=== PATIENT | male | born 1955 | race Caucasian/White ===

== ENCOUNTER 2016-08-04 18:02 | Inpatient (IN) | payer MEDICAID ==
[~2016-08-04] VITALS: Ht 188 cm; Wt 79.6 kg
[2016-08-04] MEDS ORDERED: GLUCOTROL 5 MG T5 MG PO (18:12)
[2016-08-04] MEDS ORDERED: METFORMIN HCL500 M1 PO (18:12)
[2016-08-04 18:20] VITALS: BP 123/72
--- NOTE | 2016-08-04 18:35 | NUR ---
PT TO ROOM AMBULATORY. ADMISSION COMPLETE. ATTEMPTED TO SITE PT PIV X2 STICKS NO SUCCESS. PT MOVING AND JERKING ARM AND CO OF PAIN WHEN INSERTED. WILL HAVE COMING ON NURSE SITE PT. DR LUNA AT BEDSIDE TALKING WITH PT
[2016-08-04 18:56] LABS: BASOPHILS 0.6 % (0.0-2.0); EOSINOPHILS 2.9 % (0-7); HEMATOCRIT 37.2 % (42.0-54.0); HEMOGLOBIN 13.1 g/dL (13.5-17.5); IMMATURE GRANULOCYTES 0.2 % (0-5); LYMPHOCYTES 29.6 % (15-50); MCH 32.2 pg (26.0-34.0); MCHC 35.2 g/dL (31.0-37.0); MCV 91.4 fL (80.0-100.0); MEAN PLATELET VOLUME 11.4 fL (7.4-10.4); NEUTROPHILS 59.7 % (40-80); PLATELET COUNT 269 10x3/uL (130-400); RBC 4.07 10x6/uL (4.20-6.10); WBC 5.4 10x3/uL (4.8-10.8)
[2016-08-04 19:12] LABS: ALBUMIN 3.6 g/dL (3.4-5.0); ALKALINE PHOSPHATASE 424 U/L (46-116); ALT (SGPT) 271 U/L (10-68); AMYLASE - SERUM 33 U/L (25-115); BILIRUBIN - TOTAL 10.07 mg/dL (0.2-1.3); CALC OSMOLALITY 285 mosm/kg (275-300); CALCIUM 9.1 mg/dL (8.5-10.1); CARBON DIOXIDE 23.3 mmol/L (21.0-32.0); CHLORIDE - SERUM 100 mmol/L (98-107); CREATININE - SERUM 0.7 mg/dL (0.6-1.3); GLUCOSE 341 mg/dL (74-106); LIPASE 144 U/L (73-393); PROTEIN - SERUM 7.3 g/dL (6.4-8.2); SODIUM 135 mmol/L (136-145); UREA NITROGEN 20 mg/dL (7-18); eGFR NON AFRICAN AMERICAN > 90 mL/min (90-120)
--- NOTE | 2016-08-04 19:30 | NUR ---
SITTING IN BEDSIDE CHAIR AWAITING TO GO TO CT SCAN.ALERT AND ORIENTED X3, RESP EVEN AND UNLAB UP AD CARISA W/O DIFF. SKIN IS YELLOW, WHITES IN EYES ARE YELLOW. ON CLEAR LIQUID DIET PER MD ORDERS. VOICES NO C/O PAIN OR DISCOMFORT AT THIS TIME. CONTINUE TO MONITOR.
[2016-08-04 20:00] VITALS: BP 121/77
[2016-08-05] VITALS: BP 120/78
--- NOTE | 2016-08-05 00:51 | NUR ---
IN PJS FROM HOME, IV TO RT AC INTACT AND PATENT WITH NS INFUSING W/O DIFF VIA PUMP AT 75CC/HR. SANA WELL. HOB UP SR UP X2, C/L IN REACH. CONTINUE TO MONITOR.
[2016-08-05 04:00] VITALS: BP 115/73
[2016-08-05 04:43] LABS: BASOPHILS 0.8 % (0.0-2.0); HEMATOCRIT 36.4 % (42.0-54.0); HEMOGLOBIN 12.6 g/dL (13.5-17.5); IMMATURE GRANULOCYTES 0.2 % (0-5); LYMPHOCYTES 33.8 % (15-50); MCH 31.7 pg (26.0-34.0); MCHC 34.6 g/dL (31.0-37.0); MCV 91.5 fL (80.0-100.0); MEAN PLATELET VOLUME 11.5 fL (7.4-10.4); MONOCYTES 11.3 % (2-11); NEUTROPHILS 49.9 % (40-80); PLATELET COUNT 270 10x3/uL (130-400); RBC 3.98 10x6/uL (4.20-6.10); RDW 13.9 % (11.5-14.5); WBC 4.7 10x3/uL (4.8-10.8)
[2016-08-05 05:16] LABS: ALBUMIN 3.2 g/dL (3.4-5.0); ALKALINE PHOSPHATASE 383 U/L (46-116); ALT (SGPT) 255 U/L (10-68); BILIRUBIN - TOTAL 8.87 mg/dL (0.2-1.3); CALC OSMOLALITY 285 mosm/kg (275-300); CALCIUM 8.5 mg/dL (8.5-10.1); CARBON DIOXIDE 23.7 mmol/L (21.0-32.0); CHLORIDE - SERUM 104 mmol/L (98-107); CREATININE - SERUM 0.7 mg/dL (0.6-1.3); POTASSIUM - SERUM 3.5 mmol/L (3.5-5.1); PROTEIN - SERUM 6.6 g/dL (6.4-8.2); SODIUM 138 mmol/L (136-145); UREA NITROGEN 17 mg/dL (7-18); eGFR NON AFRICAN AMERICAN > 90 mL/min (90-120)
[2016-08-05 05:20] LABS: GLUCOSE 251 mg/dL (74-106)
--- NOTE | 2016-08-05 07:25 | NUR ---
PT IS SITTING UP IN BED ARROUSED EASILY. DENIES NEEDS WILL CONT TO MONITOR
--- NOTE | 2016-08-05 08:38 | NUR ---
PAGED DR LUNA TO MAKE SURE HE IS AWARE OF CT SCAN RESULTS.
--- NOTE | 2016-08-05 08:39 | NUR ---
DR LUNA CALLED BACK AND SAID HIM AND DR GARRETT WOULD TALK WITH PT TO SEE ABOUT THEIR NEXT MOVE. MAYBE AROUND 929 TO TALK WITH HIM. SAID TO HOLD ON ANY ORDERS FOR NOW. HE IS AWARE OF CT SCAN RESULTS
--- NOTE | 2016-08-05 08:50 | NUR ---
PT REFUSES SCDS BECAUSE HE IS UP AD CARISA OFTEN
[2016-08-05 08:58] VITALS: BP 117/73
--- NOTE | 2016-08-05 11:02 | NUR ---
Patient Name: JOSÉ MIGUEL DUMONT Admission Status: Elective Accout number: [id number] Admission Date: 08-04-2016 : 1955 Admission Diagnosis: Attending: ABELINO Current LOS: 1 Anticipated DC Date: 08-05-2016 Planned Disposition: Acute Care Hospital Primary Insurance: [place] PRIVATE OPTIONS COLTEN PLANNED EXTERNAL PROVIDER: [facility] Discharge Planning Comments: * Is the patient Alert and Oriented? Yes 0 * How many steps to enter\exit or inside your home? NONE 0 * PCP DR. GARRETT 0 * Pharmacy [facility] 0 * Preadmission Environment Home with Family 0 * ADLs Independent 0 * Equipment None 0 * Other Equipment NO MEDICAL EQUIPMENT PROVIDER PREFERENCE 0 * List name and contact numbers for known caregivers / representatives who currently or will assist patient after discharge: RAHEL PATEL, SPOUSE, 0 * Community resources currently utilized None 0 * Please name any agencies selected above. NONE 0 * Additional services required to return to the preadmission environment? No 0 * Can the patient safely return to the preadmission environment? Yes 0 * Has this patient been hospitalized within the prior 30 days at any hospital? No [address] LUNA WHO ADVISED THAT PT IS IN NEED OF TRANSFER TO [facility] FOR MEDICAL / SURGERY BED, PT WILL HAVE A STENT THIS MORNING AND CAN TRANSFER. DR. LUNA PROVIDED HIS CELL PHONE NUMBER FOR ANY NEEDED DOCTOR CONTACT. CM NOTIFEID RN ELIAS JARA. CM MET WITH PT IN ROOM TO DISCUSS DISCHARGE PLANNING AND NEEDS. PT REPORTS LIVING AT HOME INDEPENDENTLY WITH SPOUSE. PT HAS NO MEDICAL EQUIPMENT AND NO OUTSIDE SERVICES ASSISTING IN THE HOME. CM DISCUSSED AVAILABILITY OF HOME HEALTH, REHAB SERVICES AND MEDICAL EQUIPMENT. PT IS IN AGREEMENT WITH TRANSFER TO [facility] RECOMMENDED BY DR. LUNA, PT CALLED AND NOTIFIED HIS VIA PHONE. CM TO FOLLOW AND ASSIST NEEDED. Latex Ribbon Machine Operator: Reymundo Blevins
[2016-08-05 11:08] VITALS: Ht 188 cm; Wt 79.6 kg
--- NOTE | 2016-08-05 11:35 | NUR ---
ELIAS WAS INFORMED THAT DR LUNA HAS REQUESTED TRANSFER TO [facility] FOR SURGICAL ONCOLOGY SERVICES. CM SPOKE WITH PATIENT AND HE WAS AWARE AND IS AGREEABLE TO TRANFER TO [facility] IF BED IS AVAILABLE. ELIAS PLACED CALL TO FANNY Reagan, LUNCH TRUCK OPERATOR, TO OBTAIN ADMIN APPROVAL. FANNY SPOKE TO DARREN ESPAÑA, ADMIN. RACECOURSE BARRIER ATTENDANT, WHO GAVE ADMINISTRATIVE APPROVAL FOR ACUTE TRANSFER. ELIAS PLACED CALL TO [facility] TRANSFER TEAM AND SPOKE TO SUSSY. ELIAS PROVIDED REQUESTED INFORMATION TO [facility] AND SUSSY STATED SHE WOULD NOTIFY CM IF PATIENT IS ACCEPTED FOR TRANSFER. ELIAS WAS CONTACTED BACK BY SUSSY AT [facility] TO INFORM THAT PATIENT HAS BEEN ACCEPTED FOR ACUTE TRANSFER TO [facility] AND ACCEPTING PHYSICIAN IS DR. CORDOVA WHO IS SURGICAL ONCOLOGIST AT [facility]. SUSSY INFORMED THAT CURRENTLY THERE ARE NO BEDS AVAILABLE FOR TRANSFER, BUT THAT TRANSFER TEAM WILL CONTACT BEDSIDE NURSE WHEN A BED BECOMES AVAILABLE. DR GARRETT AND PATIENT WERE BOTH INFORMED OF ABOVE. CM WILL FOLLOW AND ASSIST NEEDED.
[2016-08-05 11:55] LABS: APPEARANCE CLEAR (CLEAR); BILIRUBIN NEGATIVE (NEGATIVE); COLOR YELLOW (YELLOW); GLUCOSE 1000 mg/dL (NEGATIVE); KETONE NEGATIVE (NEGATIVE); LEUKOCYTE ESTERASE NEGATIVE (NEGATIVE); NITRITE NEGATIVE (NEGATIVE); PROTEIN NEGATIVE (NEGATIVE); SPECIFIC GRAVITY 1.015 (1.005-1.020); UROBILINOGEN NORMAL (NORMAL)
--- NOTE | 2016-08-05 12:25 | NUR ---
HAD DIFFICULTY WITH THE FIRST RX 44 MALFUNCTIONED THE ALUMINUM PIECE WAS BENT. USED 10 X 10 STENT THEN EANTED A 7 X 7 STENT SMALLER AND WAS PLACED. HAD TO REMOVE FIRST ONE WITH SNARE. CONTRAST 17CC AND XRAY TIME 1.2.
--- NOTE | 2016-08-05 12:32 | NUR ---
PT BACK FROM SURGERY. VS STABLE AND WNL PT ALERT AND ORIENTED DENIES NEEDS OTHER THAN LUNCH TRAY. CHECKED PT FSBS PT REFUSED INSULIN COVERAGE, SAYS THE 200S ARE HIS NORMAL FOR HIM. WILL RECHECK BEFORE DINNER. ORDERED PT LUNCH TRAY
--- NOTE | 2016-08-05 12:33 | NUR ---
[address] LUNA AND ASKED ABOUT ANTIBIOTICS AND HE SAID NO NO CUTTING NO ANTIBIOTICS NECCESSARY.
--- NOTE | 2016-08-05 12:34 | NUR ---
ANTIBIOTICS ORDERED IN THE MIDDLE OF PROCEDURE AND ANCEF GIVEN.
--- NOTE | 2016-08-05 16:47 | NUR ---
PT BS IS 335. CALLED DR DAWN OFFICE FOR INSULIN ORDER. HIS NURSE CIRSTI SAID SHE WOULD LET HIM KNOW SO HE COULD PUT IN ORDERS
[2016-08-05 17:21] VITALS: BP 110/73
--- NOTE | 2016-08-05 19:30 | NUR ---
REC'D PATIENT LYING IN BED. NO DISTRESS NOTED. DENIED PAIN AT THIS TIME. DENIED FUTHER NEEDS AT THIS TIME. INTRUCTED TO CALL IF NEEDED ANYTHING. VERBALIZED UNDERSTANDING. ASSESSED. BED LOW, LOCKED, CALL LIGHT IN REACH.
[2016-08-05 20:00] VITALS: BP 121/67
--- NOTE | 2016-08-05 21:50 | NUR ---
ADMINISTERED MEDS PRESCRIBED. PATIENT ALSO ASKED FOR SOME ICE CREAM. TOOK HIM SOME. DENIED FURTHER NEEDS. INTRUCTED TO CALL IF NEEDED ANYTHING. BED LOW, LOCKED, CALL LIGHT IN REACH.
--- NOTE | 2016-08-05 23:09 | NUR ---
PT RESTING QUIETLY WITHOUT C/O OR DISTRESS NOTED. FEW NEEDS VOICED. CALL LIGHT WITHIN REACH. WILL CONT TO MONITOR.
[2016-08-06] VITALS: BP 120/63
--- NOTE | 2016-08-06 02:16 | NUR ---
PATIENT IS RESTING IN BED. DENIES NEEDS AT THIS TIME, INSRTUCTED TO CALL IF NEEDED ANYTHING, VERBALIZED UNDERSTANDING. BED LOW, LOCKED, CALL LIGHT IN REACH.
[2016-08-06 04:00] VITALS: BP 120/76
--- NOTE | 2016-08-06 05:19 | NUR ---
PATIENT IS RESTING IN BED. DENIES NEEDS AT THIS TIME. DENIES PAIN AT THIS TIME. INSTRUCTED TO CALL IF NEEDED ANYTHING. VERBALIZED UNDERSTANDING. BED LOW, LOCKED, CALL LIGHT IN REACH.
--- NOTE | 2016-08-06 06:45 | NUR ---
RECEIVED PT REPORT. NO CO PAIN AT THIS TIME. WILL CONTINUE PLAN OF CARE. NO OTHER NEEDS.
--- NOTE | 2016-08-06 07:51 | NUR ---
PT IS ALERT. ASSESSMENT DONE PER FLOWSHEET. NO OTHER NEEDS AT THIS TIME. WILL CONTINUE TO MONTIOR.
[2016-08-06 08:00] VITALS: BP 123/76
[2016-08-06 12:00] VITALS: BP 124/75
[2016-08-06 15:59] VITALS: BP 110/68
[2016-08-06 20:27] VITALS: BP 122/75
--- NOTE | 2016-08-06 22:04 | NUR ---
INITIAL EOUNDS COMPETED AT 1914 H RS. PT DENIED ANY DISCOMFORT. ASSESSMENT COMPLETED AT 1954 HRS. VSS. IV TO RAC SL. LUNGS ESSENTIALLY CTA. UP AD CARISA. PT REQUESTING NEW IV SITE. PT SPECIFICALLY ASKING IT TO BE LOWER ON HIS INNER R FA. REFUSES IV TO L ARM, R HAND OR OUTER RFA. ATTEMPTED X1 WITHOUT SUCCESS. PT THEN STATES WILL LEAV IN AC BUT DECLINES IV FLUIDS AT THAT TIME. PM FSBS 333. 12 UNITS HUMALOG GIVEN SUB-Q TO UPPER L ARM. PM SNACK SERVED. PT CURRENTLY WATCHING TV IN RECLINER. WILL CONTINUE TO MONITOR. SR UP X2, CALL LIGHT WITHIN REACH.
--- NOTE | 2016-08-07 00:01 | NUR ---
PT AWAWK; DENIES ANY DISCOMFORT. WILL CONTINUE TO MONITOR.
[2016-08-07 00:04] VITALS: BP 118/79
--- NOTE | 2016-08-07 01:50 | NUR ---
PT AWAKE; DENIES ANY DISCOMFORT. NS AT 75CC/HR TO RAC. IV PATENT. WILL CONTINUE TO MONITOR. SR UP X2, CALL LIGHT WITHIN REACH.
[2016-08-07 04:39] VITALS: BP 122/75
--- NOTE | 2016-08-07 04:40 | NUR ---
PT RESTING WITH EYES CLOSED. RESP EVEN AND REGULAR. SR UP X2, CALL LIGHT WITHINREACH.
--- NOTE | 2016-08-07 06:46 | NUR ---
VSS THROUGHOUT NIHGT. PT DENIED ANY DISCOMFORT. AM FSBS 272. 10 UITS HUMALOG GIVEN SUB-Q TO UPPER R ARM. NEEDS MET; WILL CONTINUE TO MONITOR.
[2016-08-07 07:47] LABS: BASOPHILS 0.7 % (0.0-2.0); EOSINOPHILS 4.1 % (0-7); HEMATOCRIT 35.6 % (42.0-54.0); HEMOGLOBIN 12.1 g/dL (13.5-17.5); IMMATURE GRANULOCYTES 0.2 % (0-5); LYMPHOCYTES 42.2 % (15-50); MCH 31.4 pg (26.0-34.0); MCV 92.5 fL (80.0-100.0); MEAN PLATELET VOLUME 12.1 fL (7.4-10.4); MONOCYTES 9.1 % (2-11); NEUTROPHILS 43.7 % (40-80); PLATELET COUNT 286 10x3/uL (130-400); RBC 3.85 10x6/uL (4.20-6.10); RDW 14.4 % (11.5-14.5); WBC 4.4 10x3/uL (4.8-10.8)
[2016-08-07 08:00] VITALS: BP 128/78
[2016-08-07 08:18] LABS: ALKALINE PHOSPHATASE 298 U/L (46-116); ALT (SGPT) 195 U/L (10-68); AMYLASE - SERUM 49 U/L (25-115); BILIRUBIN - TOTAL 2.15 mg/dL (0.2-1.3); CALC OSMOLALITY 289 mosm/kg (275-300); CALCIUM 8.2 mg/dL (8.5-10.1); CARBON DIOXIDE 23.7 mmol/L (21.0-32.0); CHLORIDE - SERUM 106 mmol/L (98-107); CREATININE - SERUM 0.7 mg/dL (0.6-1.3); GLUCOSE 278 mg/dL (74-106); POTASSIUM - SERUM 3.4 mmol/L (3.5-5.1); PROTEIN - SERUM 6.4 g/dL (6.4-8.2); SODIUM 140 mmol/L (136-145); UREA NITROGEN 15 mg/dL (7-18); eGFR NON AFRICAN AMERICAN > 90 mL/min (90-120)
[2016-08-07 11:25] VITALS: BP 115/75
--- NOTE | 2016-08-07 12:45 | NUR ---
ELIAS CALLED [facility] TO CHECK STATUS OF TRANSFER. NO BEDS AVAILABLE AT THIS TIME. ELIAS WILL FOLLOW UP WITH [facility] AND DR PACHECO TOMORROW REGARDING STATUS OF TRANSFER.
[2016-08-07 15:50] VITALS: BP 117/73
--- NOTE | 2016-08-07 20:20 | NUR ---
INITIAL ROUNDS COMPELTED AT 1920 HRS. PT DENIED ANY DISCOMFORT. ASSESSMENT COMPLETED AT 2005 HRS. VSS. IV TO RAC SL. PT DECLINES IV FLUIDS. LUNGS CTA. HEART TONES S1 S2. MCCOY. PALPABLE PEDAL PULSES. PT SITTING UP IN RECLINER. WILL CONTINUE TO MONITOR. SR UP X2, CALL LIGHT WITHIN REACH.
[2016-08-07 20:48] VITALS: BP 115/75
--- NOTE | 2016-08-07 22:10 | NUR ---
PM FSBS 301. 12 UNITS HUMALOG GIVEN SUB-Q TO UPPER R ARM. PM SNACK SERVED. PT DECLINED IV FLUIDS. WILL CONTINUE TO MONITOR. SR UP X2,CALL LIGHT WITHIN REACH.
--- NOTE | 2016-08-08 00:09 | NUR ---
PT AWAKE; DENIES ANY DISCOMFORT. WILL CONTINUE TO MONITOR.
[2016-08-08 00:30] VITALS: BP 126/70
--- NOTE | 2016-08-08 03:16 | NUR ---
PT RESTING WITH EYES CLOSED. RESP EVEN AND REGULAR. SR UP X2, CALL LIGHT WITHIN REACH.
[2016-08-08 04:30] VITALS: BP 124/78
--- NOTE | 2016-08-08 04:49 | NUR ---
PT RESTING WITH EYES CLOSED. RESP EVEN AND REGULAR. SR UP X2, CALL LIGHT WITHIN REACH.
--- NOTE | 2016-08-08 06:45 | NUR ---
VSS THROUGHOUT NIGHT. PT DENIED ANY DISCOMFORT. AM FSB 298. 10 UNITS HUMALOG GIVEN SUB-Q TO UPPER R ARM. NEEDS MET; WILL CONTINUE TO MONITOR.
[2016-08-08 08:00] VITALS: BP 120/75
[2016-08-08 12:00] VITALS: BP 111/67
--- NOTE | 2016-08-08 14:20 | NUR ---
Nutrition follow-up: Diet: ADA consistent CHO PO intake 100% of most meals Labs: FSBS most > 300 mg/dl Wt: 175# +BM Pt has sliding scale insulin Pt would benefit from the addition of a long-acting insulin due to very high glucose. RDN following.
--- NOTE | 2016-08-08 16:01 | NUR ---
ALERT AND ORIENTED X4. AMBULATING IN DIMAS. DENIES PAIN OR SOB. REQUESTING UPDATE ON TRANSFER. CALL DR. PACHECO'S OFFICE FOR UPDATE. CONTINUE PLAN OF CARE AND SAFETY PRECAUTIONS.
--- NOTE | 2016-08-08 16:46 | NUR ---
CM PLACED CALL TO [facility] TRANSFER TEAM TO ASSESS AND FACILITATE TRANSFER. CM SPOKE TO CHASTITY WITH [facility] TRANSFER TEAM TO GIVE UPDATE. CM PROVIDED DR LUNA'S CONTACT INFORMATION AND MED 2 UNIT'S CONTACT INFORMATION AGAIN FOR ANY NEEDED CONTACTS THAT MAY NEED TO BE MADE TO FACILITATE TRANSFER. CM WILL FOLLOW AND ASSIST NEEDED.
--- NOTE | 2016-08-08 18:47 | NUR ---
ALERT AND ORIENTED X4. AMBULATING IN DIMAS. GAIT STEADY. [facility] CALLED TO ACCEPT TRANSFER. ONE PERSON AHEAD OF PATIENT ON LIST. DENIES SOB OR PAIN. CONTINUE PLAN OF CARE AND SAFETY PRECAUTIONS.
--- NOTE | 2016-08-08 19:30 | NUR ---
AMBULATING OUT IN HALLWAY, VOICES NO C/O PAIN OR DISCOMFORT AT THIS TIME. JAUNDICE COLOR NOTED TO SKIN. WAITING FOR A [facility] BED. CONTINUE TO MONITOR.
[2016-08-08 22:46] VITALS: BP 128/82
--- NOTE | 2016-08-09 02:15 | NUR ---
IN BED, EYES CLOSED, RESP UNLAB WITH NO S/S OF ACUTE DISTRESS NOTED AT THIS TIME. C/L IN REACH. CONTINUE TO MONITOR.
[2016-08-09 02:33] VITALS: BP 135/77
[2016-08-09 06:37] VITALS: BP 125/79
[2016-08-09 08:02] VITALS: BP 122/78
--- NOTE | 2016-08-09 11:14 | NUR ---
ALERT AND ORIENTED X4. OUT OF ROOM AMBULATING IN DIMAS. GAIT STEADY. CONSENT FOR TRANSFER SIGNED ON CHART. WAITING FOR [facility] BED PLACEMENT. DENIES SOB OR PAIN. CONTINUE PLAN OF CARE AND SAFETY PRECAUTIONS.
--- NOTE | 2016-08-09 11:22 | NUR ---
CM PLACED CALL TO [facility] MD REFERRAL LINE PER DR LUNA'S REQUEST TO ARRANGE TELEPHONE CONTACT BETWEEN DR LUNA AND DR CORDOVA AT [facility] TO DISCUSS CASE AND TRANSFER FOR PATIENT SINCE HE HAS BEEN ACCEPTED FOR TRANSFER BUT NO BEDS ARE CURRENTLY AVAILABLE AT [facility] FOR TRANSFER. CM SPOKE TO CHRISTIANO AT [facility] WHO STATED SHE WOULD HAVE DR CORDOVA CALL DR LUNA TO DISCUSS PATIENT AND THEN SHE WOULD EITHER CONTACT BONDERIZER OR BEDSIDE RN WITH STATUS UPDATE. CM WILL CONTINUE TO FOLLOW AND ASSIST. THOR MONTEJO RN
[2016-08-09 15:54] VITALS: BP 111/70
--- NOTE | 2016-08-09 16:09 | NUR ---
ELIAS RECEIVED CALL FROM DR LUNA TO INFORM THAT HE HAS SPOKEN WITH DR CORDOVA, SURGICAL ONCOLOGIST AT [facility] VIA PHONE TODAY AND THEY HAVE AGREED THAT PATIENT CAN DISCHARGE AND DR CORDOVA HAS SCHEDULED PATIENT TO BE SEEN IN HIS CLINIC AT [facility] ON Monday08/15/16. ELIAS PLACED CALL TO DR CORDOVA'S OFFICE AND SPOKE TO DANNA WHO INFORMED THAT MR DUMONT HAS AN APPOITMENT WITH DR CORDOVA AT [facility] ON Monday08/15/16 AT 2:30 PM. SHE STATED THAT PATIENT SHOULD ARRIVE AT 2:15 AND HE HAS NOT SPECIAL INSTRUCTIONS PRIOR TO HIS APPOINTMENT. CM INFORMED PATIENT OF ABOVE APPOINTMENT AND ALSO PROVIDED PATIENT WITH ADDRESS AND TELEPHONE NUMBER ALONG WITH APPT DATE/TIME FOR DR CORDOVA'S CLINIC. PT VERBALIZED UNDERSTANDING. ELIAS PLACED CALL TO DR GARRETT TO INFORM OF ABOVE.
--- NOTE | 2016-08-09 18:09 | NUR ---
ALERT AND ORIENTED X4. SITTING UP IN CHAIR. DC RT AC IV TIP INTACT. DISCHARGE INSTRUCTIONS GIVEN VERBALLY AND WRITTEN. DISCHARGE PAPERS SIGNED ON CHART. WAITING FOR RIDE. DENIES ANY NEEDS. CONTINUE PLAN OF CARE AND SAFETY PRECAUTIONS.
--- NOTE | 2016-08-09 18:40 | NUR ---
RIDE ARRIVE. REQUESTING TO WALK DOWNSTAIRS TO CAR. REMAINS FREE FROM INJURY.
== END 2016-08-09 18:41 | disposition home or self-care (01) | DRG 439 ==
LOC: D.M2 18:02
PROVIDERS: Internal Medicine Gastroenterology; ADMIT Family Medicine
PROC: 0F798DZ Dilation of Common Bile Duct with Intraluminal Device, Via Natural or Artificial Opening Endoscopic (ICD-10-PCS; principal; 2016-08-05 10:00)
DX: K86.9 Disease of pancreas, unspecified (principal); R17 Unspecified jaundice

== ENCOUNTER → 2016-09-15 21:09 | Outpatient (CLI) | payer SELFPAY ==
[2016-08-05 11:08] VITALS: BMI 24.2
[~2016-09-15 21:09] MED LIST: GLUCOTROL 5 MG T5 MG PO; METFORMIN HCL500 M1 PO
[2016-09-15 21:33] LABS: CALC OSMOLALITY 282 mosm/kg (275-300); CALCIUM 7.9 mg/dL (8.5-10.1); CARBON DIOXIDE 26.7 mmol/L (21.0-32.0); CHLORIDE - SERUM 106 mmol/L (98-107); CREATININE - SERUM 0.6 mg/dL (0.6-1.3); GLUCOSE 103 mg/dL (74-106); MAGNESIUM - SERUM 1.9 mg/dL (1.8-2.4); PHOSPHOROUS 3.5 mg/dL (2.5-4.9); POTASSIUM - SERUM 4.4 mmol/L (3.5-5.1); SODIUM 140 mmol/L (136-145); UREA NITROGEN 24 mg/dL (7-18); eGFR NON AFRICAN AMERICAN > 90 mL/min (90-120)
== END | disposition home or self-care (01) ==
LOC: D.LABREF 21:09
PROVIDERS: Family Medicine
DX: K86.89 Other specified diseases of pancreas (principal)

== ENCOUNTER → 2016-09-15 21:21 | Outpatient (CLI) | payer MEDICAID ==
[2016-08-05 11:08] VITALS: BMI 24.2
== END | disposition home or self-care (01) ==
LOC: D.LABREF 21:21
DX: K85.90 Acute pancreatitis without necrosis or infection, unspecified (principal)

== ENCOUNTER → 2016-09-19 13:42 | Outpatient (CLI) | payer MEDICAID ==
[2016-08-05 11:08] VITALS: BMI 24.2
[2016-09-19 15:15] LABS: ALBUMIN 2.8 g/dL (3.4-5.0); ALKALINE PHOSPHATASE 375 U/L (46-116); ALT (SGPT) 45 U/L (10-68); BILIRUBIN - DIRECT 0.13 mg/dL (0.00-0.30); BILIRUBIN - TOTAL 0.32 mg/dL (0.2-1.3); CALC OSMOLALITY 279 mosm/kg (275-300); CALCIUM 8.6 mg/dL (8.5-10.1); CHLORIDE - SERUM 105 mmol/L (98-107); CREATININE - SERUM 0.6 mg/dL (0.6-1.3); MAGNESIUM - SERUM 2.1 mg/dL (1.8-2.4); PHOSPHOROUS 3.8 mg/dL (2.5-4.9); POTASSIUM - SERUM 3.8 mmol/L (3.5-5.1); PRE-ALBUMIN 18.5 mg/dL (18.0-35.7); PROTEIN - SERUM 7.3 g/dL (6.4-8.2); SODIUM 140 mmol/L (136-145); TRIGLYCERIDE 56 mg/dL (30-200); UREA NITROGEN 21 mg/dL (7-18); eGFR NON AFRICAN AMERICAN > 90 mL/min (90-120)
[2016-09-19 15:26] LABS: GLUCOSE 62 mg/dL (74-106)
== END | disposition home or self-care (01) ==
LOC: D.LABREF 13:42
PROVIDERS: Family Medicine
DX: K86.89 Other specified diseases of pancreas (principal)

== ENCOUNTER 2016-10-22 13:17 | Emergency (ER) | payer MEDICAID ==
[2016-08-05 11:08] VITALS: BMI 24.2
[2016-10-22 14:14] LABS: APPEARANCE HAZY (CLEAR); BILIRUBIN NEGATIVE (NEGATIVE); COLOR YELLOW (YELLOW); GLUCOSE NEGATIVE (NEGATIVE); KETONE NEGATIVE (NEGATIVE); LEUKOCYTE ESTERASE TRACE (NEGATIVE); NITRITE NEGATIVE (NEGATIVE); PROTEIN NEGATIVE (NEGATIVE); UROBILINOGEN NORMAL (NORMAL)
[2016-10-22 14:15] LABS: BACTERIA FEW /hpf (NONE SEEN); EPITHELIAL CELLS 0-5 /hpf (0-5); RED CELLS - URINE 0-5 /hpf (0-5); WHITE CELLS - URINE 0-5 /hpf (0-5)
[2016-10-22 14:16] LABS: MUCUS >1+ /lpf (NONE SEEN)
[2016-10-22 14:29] LABS: ALBUMIN 3.2 g/dL (3.4-5.0); ALKALINE PHOSPHATASE 142 U/L (46-116); ALT (SGPT) 56 U/L (10-68); BILIRUBIN - TOTAL 0.48 mg/dL (0.2-1.3); CALC OSMOLALITY 283 mosm/kg (275-300); CALCIUM 8.5 mg/dL (8.5-10.1); CARBON DIOXIDE 29.4 mmol/L (21.0-32.0); CHLORIDE - SERUM 107 mmol/L (98-107); CREATININE - SERUM 0.8 mg/dL (0.6-1.3); POTASSIUM - SERUM 3.4 mmol/L (3.5-5.1); PROTEIN - SERUM 6.8 g/dL (6.4-8.2); SODIUM 142 mmol/L (136-145); UREA NITROGEN 11 mg/dL (7-18); eGFR NON AFRICAN AMERICAN > 90 mL/min (90-120)
[2016-10-22 14:30] LABS: GLUCOSE 132 mg/dL (74-106)
[2016-10-22 14:43] LABS: BASOPHILS 0.5 % (0-2); EOSINOPHILS 14.2 % (0-7); HEMOGLOBIN 11.6 g/dL (13.5-17.5); MCHC 33.1 g/dL (31.0-37.0); MCV 93.6 fL (80.0-100.0); MEAN PLATELET VOLUME 11.8 fL (7.4-10.4); MONOCYTES 12.6 % (2-11); NEUTROPHILS 36.7 % (40-80); PLATELET COUNT 259 10x3/uL (130-400); RBC 3.74 10x6/uL (4.20-6.10); RDW 13.7 % (11.5-14.5); WBC 4.4 10x3/uL (4.8-10.8)
== END 2016-10-22 17:30 | disposition home or self-care (01) ==
LOC: D.ER 13:17
PROVIDERS: Family Medicine; Nurse Practitioner Family
DX: R60.0 Localized edema (principal); N39.0 Urinary tract infection, site not specified; I44.0 Atrioventricular block, first degree

== ENCOUNTER 2018-08-21 14:59 | Inpatient (IN) | payer MEDICAID ==
[~2018-08-21] VITALS: Ht 188 cm; Wt 84.8 kg
[2018-08-21] MEDS ORDERED: NOVOLOG100 UNIT/1 SC ×2 (15:07→15:09)
[2018-08-21] MEDS ORDERED: LANTUS INSULIN10 ML SC (15:08)
[2018-08-21 15:36] LABS: BASOPHILS 0.3 % (0-2); EOSINOPHILS 0.8 % (0-7); HEMATOCRIT 34.4 % (42.0-54.0); IMMATURE GRANULOCYTES 0.3 % (0-5); LYMPHOCYTES 14.5 % (15-50); MCH 30.6 pg (26.0-34.0); MCHC 34.9 g/dL (31.0-37.0); MCV 87.8 fL (80.0-100.0); MEAN PLATELET VOLUME 10.8 fL (7.4-10.4); NEUTROPHILS 75.1 % (40-80); RBC 3.92 10x6/uL (4.20-6.10); RDW 13.3 % (11.5-14.5); WBC 7.3 10x3/uL (4.8-10.8)
--- NOTE | 2018-08-21 15:57 | NUR ---
URINE SENT TO THE LAB AT THIS TIME.
[2018-08-21 16:13] LABS: COLOR YELLOW (YELLOW)
[2018-08-21 16:14] LABS: APPEARANCE CLEAR (CLEAR); BILIRUBIN NEGATIVE (NEGATIVE); GLUCOSE 1000 mg/dL (NEGATIVE); KETONE SMALL mg/dL (NEGATIVE); NITRITE NEGATIVE (NEGATIVE); PROTEIN NEGATIVE (NEGATIVE); UROBILINOGEN NORMAL (NORMAL)
[2018-08-21 16:17] LABS: ANION GAP 12.9 mmol/L (8-16); BILIRUBIN - TOTAL 0.95 mg/dL (0.2-1.3); CALCIUM 9.5 mg/dL (8.5-10.1); CARBON DIOXIDE 28.6 mmol/L (21.0-32.0); CREATININE - SERUM 1.1 mg/dL (0.6-1.3); POTASSIUM - SERUM 4.5 mmol/L (3.5-5.1); PROTEIN - SERUM 7.9 g/dL (6.4-8.2)
[2018-08-21 16:21] LABS: PLATELET COUNT 168 10x3/uL (130-400)
[2018-08-21] MEDS ORDERED: DIGESTIVE ENZYMES PO (16:57)
--- NOTE | 2018-08-21 17:39 | NUR ---
PT LEAVING ED VIA STRETCHER AT THIS TIME FOR ORDERED CT SCAN. NO SIGNS OF DISTRESS NOTED WHEN LEAVING.
--- NOTE | 2018-08-21 18:06 | NUR ---
BLANKETS PROVIDED REQUESTED AND LIGHTS DIMMED FOR COMFORT. FAMILY MEMBER AT THE BEDSIDE. CALL LIGHT IN REACH. WILL CONTINUE TO MONITOR.
--- NOTE | 2018-08-21 19:09 | NUR ---
HAND-OFF REPORT GIVEN TO LOKESH DUMAS
--- NOTE | 2018-08-21 23:08 | NUR ---
PROTONIX STOP TIME 4442. PATIENT TRANSFERRED TO ROOM VIA W/C IN STABLE CONDITION.
[2018-08-22] VITALS (7 sets, daily range): BP systolic 108–140; BP diastolic 56–75; Ht 188 cm; Wt 84.8 kg
--- NOTE | 2018-08-22 00:20 | NUR ---
FSBS 187 2 UNITS OF INSULIN GIVEN PER SS.
--- NOTE | 2018-08-22 03:02 | NUR ---
I have reviewed this patient and I concur with the Shift Assessment completed by the Licensed Practical Nurse today this shift.
[2018-08-22 06:02] LABS: BASOPHILS 0.4 % (0-2); HEMATOCRIT 33.2 % (42.0-54.0); HEMOGLOBIN 11.1 g/dL (13.5-17.5); IMMATURE GRANULOCYTES 0.2 % (0-5); LYMPHOCYTES 31.6 % (15-50); MCHC 33.4 g/dL (31.0-37.0); MCV 89.7 fL (80.0-100.0); MEAN PLATELET VOLUME 11.4 fL (7.4-10.4); MONOCYTES 15.2 % (2-11); NEUTROPHILS 48.6 % (40-80); PLATELET COUNT 170 10x3/uL (130-400); RDW 13.3 % (11.5-14.5)
[2018-08-22 06:13] LABS: ALBUMIN 3.3 g/dL (3.4-5.0); ANION GAP 9.7 mmol/L (8-16); BILIRUBIN - TOTAL 0.59 mg/dL (0.2-1.3); CALCIUM 8.5 mg/dL (8.5-10.1); CREATININE - SERUM 1.1 mg/dL (0.6-1.3); MAGNESIUM - SERUM 2.1 mg/dL (1.8-2.4); POTASSIUM - SERUM 4.7 mmol/L (3.5-5.1); PROTEIN - SERUM 6.9 g/dL (6.4-8.2)
[2018-08-22 06:38] LABS: WBC 4.5 10x3/uL (4.8-10.8)
--- NOTE | 2018-08-22 14:15 | NUR ---
PT RESTING IN BED. NO SIGNS OF DISTRESS. IV TO LEFT AC PATENT NO REDNESS OR TENDERNESS. DENIES ANY FUTHER NEED AT THIS TIME. CALL LIGHT IN REACH. BED LOW POSITION. FAMILY AT BEDSIDE.
--- NOTE | 2018-08-22 14:35 | NUR ---
NPO FOR PROCEDURE TODAY. PT IS WITHOUT DISTRESS.
[2018-08-23 00:45] VITALS: BP 119/65
--- NOTE | 2018-08-23 02:03 | NUR ---
MEDICATED WITH DEMEROL PER ORDERS FOR C/O ABD PAIN RATING 5/10 ON PAIN SCALE.
--- NOTE | 2018-08-23 03:41 | NUR ---
I have reviewed this patient and I concur with the Shift Assessment completed by the Licensed Practical Nurse today this shift.
[2018-08-23 05:12] VITALS: BP 110/72
[2018-08-23 05:31] LABS: BASOPHILS 0.4 % (0-2); EOSINOPHILS 6.5 % (0-7); HEMATOCRIT 32.3 % (42.0-54.0); HEMOGLOBIN 11.1 g/dL (13.5-17.5); IMMATURE GRANULOCYTES 0.2 % (0-5); LYMPHOCYTES 32.1 % (15-50); MCH 30.6 pg (26.0-34.0); MCHC 34.4 g/dL (31.0-37.0); MEAN PLATELET VOLUME 11.2 fL (7.4-10.4); MONOCYTES 12.5 % (2-11); NEUTROPHILS 48.3 % (40-80); PLATELET COUNT 166 10x3/uL (130-400); RBC 3.63 10x6/uL (4.20-6.10); RDW 13.3 % (11.5-14.5); WBC 4.9 10x3/uL (4.8-10.8)
[2018-08-23 05:58] LABS: ALBUMIN 3.3 g/dL (3.4-5.0); ALKALINE PHOSPHATASE 163 U/L (46-116); ALT (SGPT) 47 U/L (10-68); BILIRUBIN - TOTAL 0.39 mg/dL (0.2-1.3); CALC OSMOLALITY 286 mosm/kg (275-300); CALCIUM 8.2 mg/dL (8.5-10.1); CHLORIDE - SERUM 104 mmol/L (98-107); GLUCOSE 227 mg/dL (74-106); MAGNESIUM - SERUM 2.2 mg/dL (1.8-2.4); POTASSIUM - SERUM 4.5 mmol/L (3.5-5.1); PROTEIN - SERUM 7.2 g/dL (6.4-8.2); SODIUM 140 mmol/L (136-145); UREA NITROGEN 16 mg/dL (7-18); eGFR NON AFRICAN AMERICAN 81 mL/min (90-120)
[2018-08-23 08:35] VITALS: BP 122/58
--- NOTE | 2018-08-23 09:30 | NUR ---
PATIENT REQUESTING AND RECEIVED PRODUCTS TO TAKE A SHOWER. TAPED UP HIS IV SO WE WOULD NOT LOSE ACCESS. COOKIE
[2018-08-23 12:11] VITALS: BP 104/57
--- NOTE | 2018-08-23 15:03 | NUR ---
FAMILY MEMBER IN ROOM. GALLON OF RUM BESIDE AIR CONDITIONER. PATIENT REQUESTING SOMETHING FOR PAIN TO GO HOME WITH. NOTIFIED DR MARTINES AND HE GAVE ME A SCRIPT FOR 10 TYLENOL 3'S PO PRN Q 6H.
--- NOTE | 2018-08-23 15:06 | MORECARE ---
CASE MANAGEMENT DISCHARGE SUMMARY PATIENT: JOSÉ MIGUEL DUMONT UNIT: [id number] ADM DATE: 08/21/18 AGE: 62 : 57 SEX: M ROOM/BED: D.2232 AUTHOR: CANDELARIO MONTILLA PHYSICIAN: REFERRING PHYSICIAN: CHELY MARTINES MD DATE OF SERVICE: 08/23/18 Discharge Plan Patient Name: JOSÉ MIGUEL DUMONT [facility] [facility] 1955 Planned Disposition: Home Anticipated Discharge Date: 08/24/18 Discharge Date: Expected LOS: 3 Initial Reviewer: [email or web address] Initial Review Date: 08/21/2018 Generated: 08/23/18 4:06 pm DCPIA - Discharge Planning Initial Assessment Updated by [email or web address]: Isabel Desai on 08/23/18 3:05 pm * Is the patient Alert and Oriented? Yes * How many steps to enter\exit or inside your home? 0/0 * PCP Dr. Jacques * Pharmacy [facility] in [place] * Preadmission Environment Home with Family * ADLs Independent * Equipment None * List name and contact numbers for known caregivers / representatives who currently or will assist patient after discharge: Nikki Dumont - [phone] * Verbal permission to speak to the caregivers and representatives has been obtained from the patient. Yes * Community resources currently utilized None * Additional services required to return to the preadmission environment? No * Can the patient safely return to the preadmission environment? Yes * Has this patient been hospitalized within the prior 30 days at any hospital? No Patient Name: JOSÉ MIGUEL DUMONT Page [id number] at 1506 All edits/amendments must be made on the electronic document DICTATION DATE: 08/23/18 1505 JOURNEYMAN MEAT CUTTER: MICK 08/23/18 1505 RPT#: [id number] DC DATE: STATUS: ADM IN [facility] [address] [place] [address] END OF REPORT
--- NOTE | 2018-08-23 15:16 | MORECARE ---
CASE MANAGEMENT DISCHARGE SUMMARY PATIENT: JOSÉ MIGUEL DUMONT UNIT: [id number] ADM DATE: 08/21/18 AGE: 62 : 57 SEX: M ROOM/BED: D.2232 AUTHOR: ELADIA,DOC PHYSICIAN: REFERRING PHYSICIAN: CHELY MARTINES MD DATE OF SERVICE: 08/23/18 Discharge Plan Patient Name: JOSÉ MIGUEL DUMONT Facility: [facility]:[place] : 1955 Planned Disposition: Home Anticipated Discharge Date: 08/24/18 Discharge Date: Expected LOS: 3 Initial Reviewer: [email or web address] Initial Review Date: 08/21/2018 Generated: 08/23/18 4:16 pm Comments DCP- Discharge Planning Updated by [email or web address]: Isabel Desai on 08/23/18 2:[address] Patient Name: JOSÉ MIGUEL DUMONT Admission Status: ER Accout number: [id number] Admission Date: 08-21-2018 : 1955 Admission Diagnosis: Attending: CHELY MARTINES Current LOS: 2 Anticipated DC Date: 08-24-2018 Planned Disposition: Home Primary Insurance: [place] PRIVATE OPTIONS COLT[place] Discharge Planning Comments: CM met with patient to complete initial dc planning assessment. CM educated patient on the CM role and verbal consent given by patient to complete assessment. Patient lives at home with his . At discharge patient plans to return and feels this is a safe discharge. CM discussed availability of home health, rehab services, and medical equipment. Patient denied known discharge needs at this time. He will need his disc from radiology and I informed reverse unit operator and ambulatory care coordinator of this. CM will continue to follow and will assist as needed with dc plans/needs. Track Manager: Isabel Desai DCPIA - Discharge Planning Initial Assessment Updated by [email or web address]: Isabel Desai on 08/23/18 3:05 pm * Is the patient Alert and Oriented? Yes * How many steps to enter\exit or inside your home? 0/0 * PCP Dr. Jacques * Pharmacy [facility] in [place] * Preadmission Environment Home with Family * ADLs Independent * Equipment None * List name and contact numbers for known caregivers / representatives who currently or will assist patient after discharge: Nikki Dumont - [phone] * Verbal permission to speak to the caregivers and representatives has been obtained from the patient. Yes * Community resources currently utilized None * Additional services required to return to the preadmission environment? No * Can the patient safely return to the preadmission environment? Yes * Has this patient been hospitalized within the prior 30 days at any hospital? No Last DP export: 08/23/18 2:06 pm Patient Name: JOSÉ MIGUEL DUMONT Page [id number] at 1516 All edits/amendments must be made on the electronic document DICTATION DATE: 08/23/181515 CARBON CUTTER: MICK 08/23/181515 RPT#: [id number] DC DATE: STATUS: ADM IN [facility] [address] [place] [address] END OF REPORT
[2018-08-23 16:08] VITALS: BP 136/87
[2018-08-23] MEDS ORDERED: TYLENOL W/CODEI1 TAB PO (16:10)
--- NOTE | 2018-08-23 16:58 | NUR ---
IV THERAPY DC'ED. TIP INTACT. DISCHARGE INSTRUCTIONS GIVEN PATIENT VERBALIZED UNDERSTANDING. REFUSED WHEELCHAIR OUT
--- NOTE | 2018-08-24 09:41 | MORECARE ---
CASE MANAGEMENT DISCHARGE SUMMARY PATIENT: JOSÉ MIGUEL DUMONT UNIT: [id number] ADM DATE: 08/21/18 AGE: 62 : 57 SEX: M ROOM/BED: D.2232 AUTHOR: ELADIA,DOC PHYSICIAN: REFERRING PHYSICIAN: CHELY MARTINES MD DATE OF SERVICE: 08/24/18 Discharge Plan Patient Name: JOSÉ MIGUEL DUMONT Facility: [facility]:[place] : 1955 Planned Disposition: Home Anticipated Discharge Date: 08/24/18 Discharge Date: 08/23/2018 Expected LOS: 3 Initial Reviewer: [email or web address] Initial Review Date: 08/21/2018 Generated: 08/24/18 10:41 am Comments DCP- Discharge Planning Updated by [email or web address]: Isabel Desai on 08/23/18 2:[address] Patient Name: JOSÉ MIGUEL DUMONT Admission Status: ER Accout number: [id number] Admission Date: 08-21-2018 : 1955 Admission Diagnosis: Attending: CHELY MARTINES Current LOS: 2 Anticipated DC Date: 08-24-2018 Planned Disposition: Home Primary Insurance: [place] PRIVATE OPTIONS COLT[place] Discharge Planning Comments: CM met with patient to complete initial dc planning assessment. CM educated patient on the CM role and verbal consent given by patient to complete assessment. Patient lives at home with his . At discharge patient plans to return and feels this is a safe discharge. CM discussed availability of home health, rehab services, and medical equipment. Patient denied known discharge needs at this time. He will need his disc from radiology and I informed machine made shoe unit worker and qualitative field coordinator of this. CM will continue to follow and will assist as needed with dc plans/needs. Jute Bag Sewer: Isabel Desai DCPIA - Discharge Planning Initial Assessment Updated by [id number]: Isabel Desai on 08/23/18 3:05 pm * Is the patient Alert and Oriented? Yes * How many steps to enter\exit or inside your home? 0/0 * PCP Dr. Jacques * Pharmacy [facility] in [place] * Preadmission Environment Home with Family * ADLs Independent * Equipment None * List name and contact numbers for known caregivers / representatives who currently or will assist patient after discharge: Nikki Dumont - [phone] * Verbal permission to speak to the caregivers and representatives has been obtained from the patient. Yes * Community resources currently utilized None * Additional services required to return to the preadmission environment? No * Can the patient safely return to the preadmission environment? Yes * Has this patient been hospitalized within the prior 30 days at any hospital? No Last DP export: 08/23/18 2:16 pm Patient Name: JOSÉ MIGUEL DUMONT Page [id number] at 0941 All edits/amendments must be made on the electronic document DICTATION DATE: 08/24/18939 TRANSITION TEACHER: MICK 08/24/18939 RPT#: [id number] DC DATE:08/23/18 STATUS: DIS IN [facility] [address] [place] [address] END OF REPORT
== END 2018-08-23 17:01 | disposition home or self-care (01) | DRG 392 ==
LOC: D.ER 14:59 → D.MS 20:17 → D.EDHOLD 20:17 → D.MS 21:29
PROVIDERS: Family Medicine; ADMIT Family Medicine; ATTEND Family Medicine
DX: R19.00 Intra-abdominal and pelvic swelling, mass and lump, unspecified site (principal); E11.65 Type 2 diabetes mellitus with hyperglycemia; Z79.4 Long term (current) use of insulin; Z79.84 Long term (current) use of oral hypoglycemic drugs; Z85.07 Personal history of malignant neoplasm of pancreas; R10.11 Right upper quadrant pain; R10.31 Right lower quadrant pain; D64.9 Anemia, unspecified

== ENCOUNTER 2018-10-28 15:46 | Observation (INO) | payer MEDICAID ==
[~2018-10-28] VITALS: Ht 188 cm; Wt 72.7 kg
[~2018-10-28 15:46] MED LIST changes: +DIGESTIVE ENZYMES PO; +LANTUS INSULIN10 ML SC; +NOVOLOG100 UNIT/1 SC; +TYLENOL W/CODEI1 TAB PO
[2018-10-28 16:34] LABS: HEMATOCRIT 26.3 % (42.0-54.0); HEMOGLOBIN 8.5 g/dL (13.5-17.5); MCH 30.7 pg (26.0-34.0); MCHC 32.3 g/dL (31.0-37.0); MCV 94.9 fL (80.0-100.0); MEAN PLATELET VOLUME 10.9 fL (7.4-10.4); PLATELET COUNT 273 10x3/uL (130-400); RBC 2.77 10x6/uL (4.20-6.10); RDW 23.9 % (11.5-14.5); WBC 22.3 10x3/uL (4.8-10.8)
[2018-10-28 16:36] LABS: ALBUMIN 1.2 g/dL (3.4-5.0); ALKALINE PHOSPHATASE 340 U/L (46-116); ALT (SGPT) 29 U/L (10-68); BILIRUBIN - TOTAL 2.42 mg/dL (0.2-1.3); CALC OSMOLALITY 284 mosm/kg (275-300); CALCIUM 7.5 mg/dL (8.5-10.1); CARBON DIOXIDE 19.6 mmol/L (21.0-32.0); CHLORIDE - SERUM 99 mmol/L (98-107); CREATININE - SERUM 1.9 mg/dL (0.6-1.3); GLUCOSE 250 mg/dL (74-106); PROTEIN - SERUM 7.1 g/dL (6.4-8.2); SODIUM 131 mmol/L (136-145); UREA NITROGEN 52 mg/dL (7-18); eGFR NON AFRICAN AMERICAN 38 mL/min (90-120)
[2018-10-28 16:43] LABS: APTT 36.5 SECONDS (22.8-39.4); INR 1.82 (0.85-1.17); PROTIME 20.4 SECONDS (11.6-15.0)
[2018-10-28 16:46] LABS: CKMB 0.7 U/L (0.0-3.6); CREATINE KINASE 28 UL (21-232); MAGNESIUM - SERUM 2.6 mg/dL (1.8-2.4); TROPONIN-I < 0.017 ng/mL (0.000-0.060)
[2018-10-28 17:10] LABS: LYMPHOCYTES 3 % (15-50); MONOCYTES 3 % (2-11); NEUTROPHILS 93 % (40-80)
[2018-10-28 17:12] LABS: PLATELET ESTIMATE NORMAL; TARGET CELLS 1+
[2018-10-28 17:21] VITALS: BP 89/62
[2018-10-28 17:55] VITALS: BP 102/68
[2018-10-28 18:09] VITALS: BP 95/63
--- NOTE | 2018-10-28 18:09 | NUR ---
pt laying in bed. respirations are even and unlabored at this time. family member at bedside. no distress is noted. vss. skin is warm and dry will continue to monitor pt.
--- NOTE | 2018-10-28 18:17 | NUR ---
PT RESTING IN BED WITH EYES CLOSED. RESPIRATIONS ARE EVEN AN UNLABORED. NO DISTRESS NOTED. FAMILY AT BEDSIDE. WILL CONTINUE TO MONITOR
[2018-10-28 19:30] VITALS: BP 97/58
[2018-10-28 20:30] VITALS: BP 92/56
--- NOTE | 2018-10-28 21:10 | NUR ---
pt resting in bed. respirations are even and unlabored. no distress noted. vss. family members at bedside. family reports no ngt at this time.
--- NOTE | 2018-10-28 21:30 | NUR ---
PT AND FAMILY REPORT THAT PATIENT WOULD LIKE TO BE ADMITTED FOR INPATIENT HOSPICE. ADVISED TRAMAINE LANGSTON
--- NOTE | 2018-10-28 22:24 | NUR ---
SPOKE WITH JAY WITH [facility] REGARDING CONSULT FOR INPATIENT HOSPICE CARE
[2018-10-28 22:50] VITALS: BP 102/58
[2018-10-29 00:03] VITALS: BP 89/54
--- NOTE | 2018-10-29 00:03 | NUR ---
pt laying in bed with eyes closed. respirations are even unlabored. skin is warm and dry. family at bedside. vss. no signs of distress noted at this time.
--- NOTE | 2018-10-29 00:30 | NUR ---
JAY FROM [facility] AT BEDSIDE FOR HOSPICE CONSULT AT THIS TIME.
--- NOTE | 2018-10-29 02:00 | NUR ---
RECIEVED TO ROOM FROM ER, AROUSED WHEN TRANSFERED, OPENS EYES AND ASK FOR WATER, INFORMED THAT COULD HAVE NOTHING TO EAT OR DRINK AT THIS TIME, WILL GET MOUTH SPONGES THAT CAN DIP IN WATER AND MOISTEN MOUTH, NODS YES TO THAT, SEE SHIFT ASSESSMENT, CALL LIGHT IN REACH AT BEDSIDE
--- NOTE | 2018-10-29 03:00 | NUR ---
REPORTS HAS NOT VOIDED SINCE GOT TO HOSPITAL ABOUT 2PM YESTERDAY, OVER 12 HRS AGO, REQUEST ANDERS CATH PT IS UNABLE TO GET UP AND WANTS COMFORT CARE, ATTEMPTED TO PLCAE 16 FR ANDERS UNABLE TO GET TIP TO PASS INTO URTHERAL OPENING, ATTEMPTED WITH 15 FR, AGAIN WITHOUT SUCCESS, INSERTED 8FR NGT WITH SLOW RETURN OF DARK YELLOW URINE, ALLOWED TO REMAIN IN PLACE AT THIS TIME TO DRAINAGE BASIN
[2018-10-29] MEDS ORDERED: CREON DR 24,001 EACH (03:16)
[2018-10-29] MEDS ORDERED: BASAGLAR K100 UNIT/1 (03:17)
[2018-10-29] MEDS ORDERED: HUMULIN R100 U/ML (03:18)
[2018-10-29] MEDS ORDERED: ZOFRAN4 MG (03:18)
[2018-10-29] MEDS ORDERED: NYSTATIN (03:20)
[2018-10-29 03:23] VITALS: BP 89/60; Ht 188 cm; Wt 72.7 kg
--- NOTE | 2018-10-29 07:30 | NUR ---
PT RESTING IN BED, EYES CLOSED. RESPIRATIONS EVEN AND UNLABORED. SKIN COLOR PALE. MOUTH BREATHER. BP LOW. ON 4L O2, NC. RIGHT CHEST PORT, NS INFUSING @ 100ML/HR. SITE PATENT WITHOUT REDNESS OR SWELLING. ANDERS CATH PRESENT. PT NPO AT THIS TIME. FAMILY AT BEDSIDE. NO C/O PAIN. NO S/S OF ACUTE DISTRESS NOTED. PT DENIES ANYTHING FURHTER AT THIS TIME. CALL LIGHT IN REACH. WILL CONTINUE TO MONITOR.
[2018-10-29 08:39] VITALS: BP 78/46
--- NOTE | 2018-10-29 09:58 | MORECARE ---
CASE MANAGEMENT DISCHARGE SUMMARY PATIENT: JOSÉ MIGUEL DUMONT UNIT: [id number] ADM DATE: 10/29/18 AGE: 62 : 57 SEX: M ROOM/BED: D.2231 AUTHOR: CANDELARIO MONTILLA PHYSICIAN: REFERRING PHYSICIAN: ELLY HOLLIS MD DATE OF SERVICE: 10/29/18 Discharge Plan Patient Name: JOSÉ MIGUEL DUMONT Facility: [facility]:[place] : 1955 Planned Disposition: Hospice Medical Facility Anticipated Discharge Date: 10/29/18 Discharge Date: Expected LOS: 1 Initial Reviewer: [email or web address] Initial Review Date: 10/29/2018 Generated: 10/29/18 10:58 am Comments DCP- Discharge Planning Updated by [email or web address]: Isabel Desai on 10/29/18 8:[address] Patient Name: JOSÉ MIGUEL DUMONT Admission Status: ER Accout number: [id number] Admission Date: 10-29-2018 : 1955 Admission Diagnosis: Attending: ELLY HOLLIS Current LOS: 1 Anticipated DC Date: 10-29-2018 Planned Disposition: Hospice Medical Facility Primary Insurance: [employer] [place] PRIVATE OPTIONS COLTEN Discharge Planning Comments: Met with patient and his in the room. Patient is sleeping. His states she just spoke with [facility] and they are going to come out with paper work to change him to [facility] because they want to stay here on hospice. BELEN form signed for [facility]. I spoke with Eduar with [facility] and clinical faxed. CM will continue to follow and assist with discharge planning/needs. Locomotive Engineer Diesel: Isabel Desai External Providers External Provider: [facility](provides inp Next Contact Date: Service Request Date: Service Type: Resolution: Reviewer: Comments: Coverage Notice Reviewer: [id number] - Isabel Desai Notice Issued Date-Time: 10/29/2018 9:57 Notice Type: Patient Choice Letter Notice Delivered To: Family Member Relationship to Patient: Spouse Transportation Services Representative Name: Nikki Christine Delivery Method: HAND - Hand Delivered Kayla Days: Prior Verbal Notification: Recipient Understood Notice: Yes Recipient Signature: Yes Med Rec Note Co-signed by Attending: Coverage Notice Comment: BELEN for [facility] Patient Name: JOSÉ MIGUEL DUMONT Page [id number] at 0958 All edits/amendments must be made on the electronic document DICTATION DATE: 10/29/18956 HUMAN RELATIONS MANAGER: MICK 10/29/18956 RPT#: [id number] DC DATE: STATUS: ADM IN [facility] [address] [place] [address] END OF REPORT
--- NOTE | 2018-10-29 11:00 | NUR ---
I have reviewed this patient and I concur with the Shift Assessment completed by the Licensed Practical Nurse today this shift.
--- NOTE | 2018-10-29 12:41 | NUR ---
UNABLE TO CATHERIZE PT, REPORTED TO WALDEMAR DOMINGUEZ APN. BLADDER SCAN DONE, 480ML IN BLADDER. OFFICE ADMINISTRATIVE ASSISTANT REQUESTED CONSULT WITH DR. BASILIO.
[2018-10-29 13:13] VITALS: BP 81/35
--- NOTE | 2018-10-29 16:10 | NUR ---
UNABLE TO OBTAIN PATIENT VITAL SIGNS. PATIENT BREATHING LABORED, RESPIRATIONS 12. SKIN CLAMMY, DIAPHORETIC, AND COLD. PATIENT UNRESPONSIVE TO VOICE. REQUESTS PATIENT STAY A DNR AT THIS TIME.
--- NOTE | 2018-10-29 16:40 | NUR ---
CALLED INTO PATIENTS ROOM BY FAMILY. PATIENT HAD NO BP, RESPIRATIONS, PULSE OR O2 SAT. NOTIFIED MICROGRAPHICS SERVICES SUPERVISOR. NOTIFIED PHYSICIAN. BREAD ROOM HAND, B[place], AND HOME NOTIFIED BY LOKESH FINK. ER PHYSICIAN CALLED TOD AT 1630. FAMILY AT BEDSIDE. LOKESH FINK DISCONTINUED PORT NEEDLE. PT BATHED AND REDRESSED.
--- NOTE | 2018-10-30 07:13 | MORECARE ---
CASE MANAGEMENT DISCHARGE SUMMARY PATIENT: JOSÉ MIGUEL DUMONT UNIT: [id number] ADM DATE: 10/29/18 AGE: 62 : 57 SEX: M ROOM/BED: D.2231 AUTHOR: CANDELARIO MONTILLA PHYSICIAN: REFERRING PHYSICIAN: ELLY HOLLIS MD DATE OF SERVICE: 10/30/18 Discharge Plan Patient Name: JOSÉ MIGUEL DUMONT Facility: [facility]:[place] : 1955 Planned Disposition: Hospice Medical Facility Anticipated Discharge Date: 10/29/18 Discharge Date: 10/29/2018 Expected LOS: 1 Initial Reviewer: [email or web address] Initial Review Date: 10/29/2018 Generated: 10/30/18 8:13 am DCP- Discharge Planning Updated by [email or web address]: Isabel Desai on 10/29/18 8:[address] Patient Name: JOSÉ MIGUEL DUMONT Admission Status: ER Accout number: [id number] Admission Date: 10-29-2018 : 1955 Admission Diagnosis: Attending: ELLY HOLLIS Current LOS: 1 Anticipated DC Date: 10-29-2018 Planned Disposition: Hospice Medical Facility Primary Insurance: [email or web address] PRIVATE OPTIONS COLTEN Discharge Planning Comments: Met with patient and his in the room. Patient is sleeping. His states she just spoke with [facility] and they are going to come out with paper work to change him to [facility] because they want to stay here on hospice. BELEN form signed for [facility]. I spoke with Eduar with [facility] and clinical faxed. CM will continue to follow and assist with discharge planning/needs. Drawer In Hand: Isabel Desai Coverage Notice Reviewer: [id number] - Isabel Desai Notice Issued Date-Time: 10/29/2018 9:57 Notice Type: Patient Choice Letter Notice Delivered To: Family Member Relationship to Patient: Spouse Primer And Powder Canning Leader Name: Nikki Christine Delivery Method: HAND - Hand Delivered Kayla Days: Prior Verbal Notification: Recipient Understood Notice: Yes Recipient Signature: Yes Med Rec Note Co-signed by Attending: Coverage Notice Comment: BELEN for [facility] Last DP export: 10/29/18 8:58 am Patient Name: JOSÉ MIGUEL DUMONT Page [phone] at 0713 All edits/amendments must be made on the electronic document DICTATION DATE: 10/30/18711 HISTOLOGIC AIDE: MICK 10/30/18711 RPT#: [id number] DC DATE:10/29/18 STATUS: DIS IN [facility] [address] [place] [address] END OF REPORT
== END 2018-10-29 19:26 ==
LOC: D.ER 15:46 → OBSVTIME 10-29 01:16 → D.MS 10-29 01:16
PROVIDERS: Emergency Medicine; ADMIT Internal Medicine Nephrology; ATTEND Internal Medicine Nephrology
DX: A41.9 Sepsis, unspecified organism (principal); K56.609 Unspecified intestinal obstruction, unspecified as to partial versus complete obstruction; N17.9 Acute kidney failure, unspecified; E86.0 Dehydration; K72.00 Acute and subacute hepatic failure without coma; Z66 Do not resuscitate; C25.9 Malignant neoplasm of pancreas, unspecified; E43 Unspecified severe protein-calorie malnutrition; E86.1 Hypovolemia; D68.9 Coagulation defect, unspecified